=== PATIENT | female | born 1970 | race Hispanic/Latino ===

== ENCOUNTER 2019-10-03 15:25 | Emergency (ER) | payer BC, OTHER | END 2019-10-03 16:36 | disposition home or self-care (01) | LOC: EDH 15:25 | DX: R06.02 Shortness of breath (principal); R06.00 Dyspnea, unspecified; R51 Headache; R19.7 Diarrhea, unspecified; R07.89 Other chest pain; Z20.828 Contact with and (suspected) exposure to other viral communicable diseases; R20.2 Paresthesia of skin; E78.00 Pure hypercholesterolemia, unspecified ==